=== PATIENT | male | born 1930 | race Caucasian/White ===

== ENCOUNTER 2019-05-22 02:07 | Inpatient (IN) | payer MEDICARE ==
[2019-05-22 02:42] LABS: #Basophils 0.1 thou/uL (0.0-0.2); #Eosinphils 0.5 thou/uL (0.0-0.7); #Lymphocytes 1.4 thou/uL (1.20-3.40); #Neutrophils 12.1 thou/uL (1.40-6.50); %Basophils 0.6 % (0.0-1.0); %Eosinophils 3.6 % (0.0-10.0); %Lymphocytes 9.4 % (21.0-51.0); %Monocytes 6.7 % (0.0-10.0); %Neutrophils 79.7 % (42.0-75.0); Hemoglobin 13.7 g/dL (14.0-18.0); Mean Corpuscular HGB CONC 31.9 g/dL (32.0-36.0); Mean Corpuscular Volume 97.4 fL (78.0-98.0); Mean Platelet Volume 8.5 fL (7.4-10.4); Platelet Count 316 thou/uL (130-400); RBC Distribution Width 12.3 % (11.5-14.5); Red Blood Cell (RBC) Count 4.43 mill/uL (4.70-6.10); White Blood Cell (WBC) Count 15.1 thou/uL (4.8-10.8)
[2019-05-22 03:06] LABS: ALT (SGPT) 20 U/L (8-55); AST (SGOT) 26 U/L (5-34); Albumin 2.6 g/dL (3.4-4.8); Alkaline Phosphatase 61 U/L (40-110); Anion Gap 10 mmol/L (10-20); BUN (Urea Nitrogen) 23 mg/dL (8.4-25.7); Bilirubin, Total 0.6 mg/dL (0.2-1.2); Calc. Creatinine Clearance 0 mL/min (70-130); Calcium 7.8 mg/dL (7.8-10.44); Carbon Dioxide 28 mmol/L (23-31); Chloride 103 mmol/L (98-107); Estimated GFR-MDRD 67; Globulin 2.3 g/dL (2.4-3.5); Glucose 103 mg/dL (83-110); Lipase 171 U/L (8-78); Magnesium 2.1 mg/dL (1.6-2.6); Protein, Total 4.9 g/dL (5.8-8.1); Sodium 137 mmol/L (136-145)
[2019-05-22 03:20] LABS: Bacteria/HPF None Seen HPF (None Seen); Bilirubin Negative (Negative); Blood, Urine 1+ (Negative); Clarity Clear (Clear); Glucose, Urine (Dipstick) Normal (Negative); Leukocyte 250 Leu/uL (Negative); Nitrite Negative (Negative); Protein, Urine (Dipstick) 20 mg/dL (Neg-Trace); Squamous Epithelial 0-3 HPF (0-3); Urobilinogen Normal mg/dL (Less than 2); WBC/HPF Greater than 50 HPF (0-3); Yeast-Budding 1+ HPF (None Seen)
[2019-05-22 03:27] LABS: CKMB 1.5 ng/mL (0-6.6)
[2019-05-22] MEDS ORDERED: cefTRIAXone\\ROCEPHIN 1 GM VIAL ONE (03:46)
--- NOTE | 2019-05-22 03:54 | PDOC.FPRHP ---
- History of Present Illness Chief Complaint: Chest Pain History of Present Illness: 88yo CM with h/o CAD s/p CABG in 2009, HLD, HTN, Anxiety, PTSD, and chronic back pain presents from rehab with chest pain. Pt was recently admitted to the [facility] for Pancreatitis, developed acute delirium and fluid overload and placed on BiPAP for small time. Was improved and discharged to inpatient rehab yesterday. Earlier in the night pt began to experience a substernal chest pressure, rated 5 /10, no radiation, n/v, diaphoresis, or SOB. States he was experiencing associated anxiety and states he has history of anxiety attacks. He has never had pain like this before. Tolerating PO but needs a root canal so some discomfort. and daughter at beside who provide additional history. State he is at his baseline mentation. CP as since resolved completely. Denies any SOB , n/v, fever/chills, Abd pain, LE edema. Endorse UE edema for past 24 hours. Does endorse wounds to BL ankles from being bedridden and generalized deconditioning. PCP: Dr. Dubon - СЕРГЕЙ Cardiology: Dr. Karimi ED Course: Given Rocephin and ASA - Allergies/Adverse Reactions Allergies Allergy/AdvReac Type Severity Reaction Status Date / Time codeine Allergy Verified 05/22/19 06:11 - Home Medications Medication Instructions Recorded Confirmed Type Atorvastatin Calcium [Lipitor] 40 mg PO HS 06/01/14 05/22/19 History Multivit-Min/FA/Lycopene/Lut 1 tablet PO DAILY 06/01/14 05/22/19 History [Centrum Silver] Potassium Chloride [Klor-Con M20] 2 tab PO BID 06/01/14 05/22/19 History Tamsulosin HCl [Flomax] 0.4 mg PO DAILY 06/01/14 05/22/19 History Acetaminophen [Tylenol] 1 - 2 tab PO Q4H PRN 05/22/19 05/22/19 History Aspirin [Ecotrin] 325 mg PO BID 05/22/19 05/22/19 History Benzocaine/Menthol [Cepacol Sore 1 each PO Q2H PRN 05/22/19 05/22/19 History Throat Lozenge] Bisacodyl [Dulcolax] 10 mg TN DAILY PRN 05/22/19 05/22/19 History Calcium Carbonate [Tums] 1 - 2 tab PO Q6H PRN 05/22/19 05/22/19 History Carvedilol [Coreg] 12.5 mg PO BID 05/22/19 05/22/19 History Dextromethorphan/Benzocaine 1 each PO BID PRN 05/22/19 05/22/19 History [Cepacol Sorethroat-Cough Alena] Dextrose 50 % In Water [Dextrose 50 ml IV PRN PRN 05/22/19 05/22/19 History 50%-Water Abboject] Doxycycline [Vibramycin] 100 mg PO BID 05/22/19 05/22/19 History Famotidine [Pepcid] 20 mg PO BID 05/22/19 05/22/19 History Furosemide [Lasix] 20 mg PO BID 05/22/19 05/22/19 History Glucagon [Gvoke Syringe] 1 mg IM PRN PRN 05/22/19 05/22/19 History Ipratropium/Albuterol Sulfate 3 ml NEB Q4HR PRN 05/22/19 05/22/19 History [Duoneb] Lactulose 10 GM/15ML Oral Radha 20 gm PO TID PRN 05/22/19 05/22/19 History [Lactulose] Levofloxacin [Levaquin] 500 mg PO DAILY 05/22/19 05/22/19 History Loperamide HCl [Loperamide] 2 mg PO PRN PRN 05/22/19 05/22/19 History Magnesium Hydroxide [Milk of 30 ml PO DAILY PRN 05/22/19 05/22/19 History Magnesia] Magnesium Oxide 2 tab PO DAILY 05/22/19 05/22/19 History Polyethylene Glycol 3350 [Miralax] 17 gm PO DAILY 05/22/19 05/22/19 History Sacubitril/Valsartan [Entresto 24 1 each PO BID 05/22/19 05/22/19 History mg-26 mg Tablet] cloNIDine [Catapres] 0.1 mg PO Q6H PRN 05/22/19 05/22/19 History diphenhydrAMINE [Benadryl] 25 mg PO Q6HR PRN 05/22/19 05/22/19 History fentaNYL [Duragesic] 75 mcg TD Q3D 05/22/19 05/22/19 History guaiFENesin [Guaifenesin] 200 mg PO Q4H PRN 05/22/19 05/22/19 History - History PMHx: CAD s/p CABG 2008, HLD, HTN, anxiety with panic attacks, PTSD, chronic pain PSHx: Left lobectomy in 1949s 2/2 fungal infection, [place], CABG 2008, H/o PE in 2008, multiple neck and spinal surgeries FHx: [place] Social: Presents from inpatient rehab. Prior was able to ambulate at home and perform ADLS per family report. Prior alcoholic but sober for 18 years. No tob or illicits. - Review of Systems General: reports: fatigue. denies: fever/chills, weight/appetite/sleep changes Eyes: denies: vision changes ENT: denies: nasal congestion, rhinorrhea Respiratory: denies: cough, congestion, shortness of breath, exercise intolerance Cardiovascular: reports: chest pain (resolved), edema (of hands and arms). denies: palpitation, paroxysmal nocturnal dyspnea, orthopnea Gastrointestinal: denies: nausea, vomiting, diarrhea, constipation, abdominal pain Genitourinary: reports: dysuria. denies: incontinence Skin: denies: rashes Musculoskeletal: reports: pain (chronic back pain) Psychological: reports: anxiety - Vital signs BP: 102/45 HR: 61 RR: 18 Tmax: 97.9 Pox: 93% on RA Wt: 95kg - Physical Exam Constitutional: NAD, awake, alert and oriented, other (decondited and chronically ill-appearing) HEENT: grossly normal vision, grossly normal hearing, MMM, oropharynx clear Neck: supple, trachea midline, no LAD Chest: other (well-healed sternotomy scar) Heart: RRR, normal S1/S2, pulses present, other (Significant UE edema of hands and arms. No LE edema noted. 2/6 KVNG.) Lungs: CTAB, no respiratory distress, good air movement, no rales/rhonchi, no wheezing Abdomen: soft, non-tender Musculoskeletal: normal structure Neurological: no focal deficit Skin: no rash/lesions Heme/Lymphatic: no unusual bruising or bleeding, no purpura Psychiatric: normal mood and affect (a/o x3), good judgment and insight, intact recent and remote memory, other FMR H&P: Results - Labs Result Diagrams: 05/22/19 02:34 05/22/19 02:34 Lab results: WBC 15.1 thou/uL (4.8-10.8) H 05/22/19 02:34 Hgb 13.7 g/dL (14.0-18.0) L 05/22/19 02:34 Hct 43.1 % (42.0-52.0) 05/22/19 02:34 MCV 97.4 fL (78.0-98.0) 05/22/19 02:34 Plt Count 316 thou/uL (130-400) 05/22/19 02:34 Neutrophils % 79.7 % (42.0-75.0) H 05/22/19 02:34 Sodium 137 mmol/L (136-145) 05/22/19 02:34 Potassium 4.0 mmol/L (3.5-5.1) 05/22/19 02:34 Chloride 103 mmol/L (98-107) 05/22/19 02:34 Carbon Dioxide 28 mmol/L (23-31) 05/22/19 02:34 BUN 23 mg/dL (8.4-25.7) 05/22/19 02:34 Creatinine 1.05 mg/dL (0.7-1.3) 05/22/19 02:34 Glucose 103 mg/dL (83-110) 05/22/19 02:34 Calcium 7.8 mg/dL (7.8-10.44) 05/22/19 02:34 Total Bilirubin 0.6 mg/dL (0.2-1.2) 05/22/19 02:34 AST 26 U/L (5-34) 05/22/19 02:34 ALT 20 U/L (8-55) 05/22/19 02:34 Alkaline Phosphatase 61 U/L (40-110) 05/22/19 02:34 CK-MB (CK-2) 1.5 ng/mL (0-6.6) 05/22/19 02:34 B-Natriuretic Peptide 295.8 pg/mL (0-100) H 05/22/19 02:34 Serum Total Protein 4.9 g/dL (5.8-8.1) L 05/22/19 02:34 Albumin 2.6 g/dL (3.4-4.8) L 05/22/19 02:34 Lipase 171 U/L (8-78) H 05/22/19 02:34 Urine Ketones Negative mg/dL (Negative) 05/22/19 03:02 Urine Blood 1+ (Negative) A 05/22/19 03:02 Urine Nitrite Negative (Negative) 05/22/19 03:02 Ur Leukocyte Esterase 250 Dwain/uL (Negative) A 05/22/19 03:02 Urine RBC 11-20 HPF (0-3) A 05/22/19 03:02 Urine WBC Greater than 50 HPF (0-3) A 05/22/19 03:02 Ur Squamous Epith Cells 0-3 HPF (0-3) 05/22/19 03:02 Urine Bacteria None Seen HPF (None Seen) 05/22/19 03:02 - Radiology Interpretation Chest x-ray Status: image reviewed by me (no acute CPP, no focal consolidation) CT scan - abdomen Status: report reviewed by me (negative for PE. Emphysematous changes with nonspecfici bronchiolitis in the RUL and RML. Fluid overload with BL Pleural effusions and sub q edema. Subcentimeter pulm nodules) FMR H&P: A/P - Problem List (1) Acute exacerbation of CHF (congestive heart failure) Current Visit: Yes Status: Acute Code(s): I50.9 - HEART FAILURE, UNSPECIFIED (2) Chronic low back pain Current Visit: Yes Status: Chronic Code(s): M54.5 - LOW BACK PAIN; G89.29 - OTHER CHRONIC PAIN (3) CAD (coronary artery disease) Current Visit: Yes Status: Chronic Code(s): I25.10 - ATHSCL HEART DISEASE OF [place] CORONARY ARTERY W/O ANG PCTRS Qualifiers: Coronary Disease-Associated Artery/Lesion type: bypass graft, autologous vein (4) Anxiety Current Visit: Yes Status: Chronic Code(s): F41.9 - ANXIETY DISORDER, UNSPECIFIED (5) Hypertension Current Visit: Yes Status: Chronic Code(s): I10 - ESSENTIAL (PRIMARY) HYPERTENSION - Plan 88yo CM with h/o CAD s/p CABG in 2008, HLD, HTN, Anxiety, PTSD, and chronic back pain presents from rehab with chest pain found to have mild CHF exacerbation and fungal UTI. #Mild CHF exacerbation - H/o CAD s/p CABG in 2008 - Dr. Karimi is [employer], recently seen at last hospitalization for Pancreatitis - Lungs clear on exam and CXR but CT with BL pleural effusions and sub q edema. Has UE edema - Will give Lasix 40mg IV x1 now and cont to monitor and restart home dose - No echo at this time as recently seen by cardiology - Strict I/Os and daily weights, monitoring clinical status #Atypical Chest pain - likely 2/2 CHF exercation and acute anxiety - Trop 0.1, lower than previous visits, will trend - admit to tele for monitoring - has since resolved #Fungal UTI - UTI with 1+ fungus and LE and WBC. Sxs of dysuria - Given Rocephin x1 in ED, will d/c - Diflucan 200mg BID x14d - WBC 15.1, will trend #Deconditioning - came from inpatient rehab, goal of returning when medically cleared - PT/OT/Case Management consulted #Elevated D-Dimer - D-dimer 2.37, CTA negative for PE #Anxiety/PTSD - Home elavil and klonipin - Will hold home meds as pt as some complaints of confusion and could be causing some decreased breathing leading to increased fluid overload - Will reeval and restart when appropriate #Chronic back pain - On fentyl patch at home, will cont #HLD - cont home lipitor #HTN - cont home meds and monitor Code: Full - discussed with pt and at beside VTE: Lovenox Diet: HH - mechanical soft IVF: SL PCP: Pope Lauren RUSHING Disposition/LOS: Admit to tele for atypical chest pain and acute CHF exacerbation and fungal UTI. Diuresis with IV lasix. Cont Diflucan for yeast UTI. Trop trops. FMR H&P: Upper Level - Pertinent history I went and talked with patient. Pt reports having chest pain at rest. Hadn't felt anything like this before. Talked with family about past hospitilization. Their story in in congruence with above HPI. I made edits above as needed. - Pertinent findings Pt is slumped over in bed. Pt had reproducible pain to palpation along chest wall. Pt has sky in place. Cardio: RRR, no murmurs or gallops. Resp: Pt has some decreased breath sounds. No crackles or rales noted. Ext: No edema note in LE. Pt has swelling in hands bilaterally. Abdomen mildly distended. - Plan Date/Time: 05/22/19 5913 I, Ilia Frost, PGY-3, have evaluated this patient and agree with findings/ plan as outlined by actuarial intern resident. Pertinent changes/additions are listed here. See above for detailed plan. I made edits as needed. Pt was initially admitted for concern for Chest Pain R/O. At this time we believe pt has mild chf exacerbation. Pt recently tx for pancreatitis and discharged yesterday. He was even seen by his transliterator at the other hospital and tx for fluid overload after fluid rescusitation for pancreatitis. At this time will give IV lasix. He is also noted to have yeast UTI. Could be contributing to weakness and possibly some of his pain. Will tx with diflucan. Addendum - Attending - Attending Attestation Date/Time: 05/22/19 2179 I personally evaluated the patient and discussed the management with Dr. Wahl. I agree with the History, Examination, Assessment and Plan documented above with any addition or exceptions noted below. The patient presented from Inpt rehab for chest pain. He does note pain in the center of his chest and it is reproducible. CT shows evidence of volume overload. Will give IV lasix. UA shows yeast, will treat with fluconazole for uti 2/2 yeast.
[2019-05-22] MEDS ORDERED: Aspirin 325 MG TAB PO SCH (05:30)
[2019-05-22] MEDS ORDERED: Ondansetron ODT 4 MG TAB PO PRN (05:38)
[2019-05-22] MEDS ORDERED: Calcium Carbonate 500 MG ChewTAB PO PRN (05:38)
[2019-05-22] MEDS ORDERED: Ondansetron PF 4 MG/2 ML Vial IVP PRN (05:38)
[2019-05-22] MEDS ORDERED: Furosemide 40 MG/4 ML VIAL SLOW IVP SCH (05:45)
[2019-05-22 06:19] LABS: Troponin I 0.077 ng/mL (< 0.028)
--- NOTE | 2019-05-22 07:30 | RAD ---
EXAM: XR Chest 1 View Portable PROVIDED CLINICAL HISTORY: Hypotension and chest pain COMPARISON: 06/05/2014 FINDINGS: Cardiac and mediastinal silhouette is unchanged in appearance. Left subclavian cardiac pacing device and median sternotomy changes are again seen. The left lung apex is obscured. Elevation left hemidiaphragm with adjacent pleural and/or parenchymal opacity appears similar to the prior study. No evidence for pneumothorax. IMPRESSION: Elevation of the left hemidiaphragm with adjacent pleural and/or parenchymal opacity. This appears si milar to prior and may reflect chronic or recurrent process.
--- NOTE | 2019-05-22 08:05 | CT ---
PRELIMINARY REPORT/[facility]/EMERGENCY AFTER HOURS PROCEDURE PROCEDURE INFORMATION: Exam: CT Angiography Chest With Contrast Exam date and time: 05/22/2019 3:19 AM Clinical history: 88 years old, male; Patient HX: Er8; M86, patient complains of midsternal chest pain and hypotension. PT has history of chf and pacer placement. TECHNIQUE: Imaging protocol: Computed tomographic angiography of the chest with intravenous contrast. 3D rendering: MIP reconstructed images were created and reviewed. COMPARISON: No relevant prior studies available. FINDINGS: Pulmonary arteries: No pulmonary emboli. Aorta: Atherosclerosis of the aorta without aneurysm. Other veins: Linear density in the left inferior pulmonary vein is probably related to mixing artifac t. Thyroid: Subcentimeter left thyroid lobe nodule. Lungs: Emphysematous changes with mild septal thickening and mild scattered groundglass opacities. Focal areas of tiny centrilobular nodules consistent with bronchiolitis, for example poste rior aspect of the right upper lung (series 3, image 59). There are a few subcentimeter pulmonary nodules, for example right middle lobe measuring 4 mm (series 3, image 75). Bibasilar atelectasis. Pleural space: Small bilateral pleural effusions, right greater than left. Heart: The heart is within normal size limits. No abnormal pericardial effusion. Coronary artery calcifications. Surgical changes of coronary artery bypass. Left approach dual lead pacemaker. Diaphragm: Elevation of the left hemidiaphragm. Intraperitoneal space: Small volume ascites in the upper abdomen. Lymph nodes: No lymphadenopathy. Bones/joints: Anterior cervical spine fusion C5-C6. Chronic appearing deformities of left lateral fourth and fifth ribs. Soft tissues: Subcutaneous edema. IMPRESSION: 1. No evidence of a pulmonary embolism. 2. Emphysematous changes with nonspecific bronchiolitis predominantly in the right upper lung and right middle lobe. 3. Findings consistent with fluid overload including bilateral pleural effusions, subcutaneous edema and likely early edema. 4. Defer to the on-site radiologist for followup of subcentimeter pulmonary nodules. Thank you for allowing us to participate in the care of your patient. Dictated and Authenticated by: Tosin Cardoso MD 05/22/2019 4:35 AM Central Time ([place] & [place]) FINAL REPORT: CT PULMONARY ANGIOGRAM WITH IV CONTRAST AND 3D MIP RECONSTRUCTIONS: PROVIDED CLINICAL HISTORY: Chest pain COMPARISON: None FINDINGS/IMPRESSION: Agree with the preliminary interpretation given by [facility]. Described pulmonary nodules do not need foll ow-up per Fleischner criteria. Transcribed Date/Time: 05/22/2019 8:29 AM
[2019-05-22] MEDS: Fluconazole 100 MG TAB PO SCH (09:02)
[2019-05-22] MEDS: Aspirin 81 mg Enteric Coated Tablet PO SCH (09:02)
[2019-05-22] MEDS: Potassium Chloride 20 MEQ TAB PO SCH ×2 (09:03→09:13)
[2019-05-22] MEDS: Famotidine 20 MG TAB PO SCH ×2 (09:03→20:16)
[2019-05-22] MEDS: Atorvastatin Calcium 40 MG TAB PO SCH (09:03)
[2019-05-22] MEDS: Enoxaparin Sodium 40 MG/0.4 ML SYRINGE SC SCH (09:03)
[2019-05-22 09:24] LABS: Troponin I 0.058 ng/mL (< 0.028)
[2019-05-22] MEDS: Furosemide 20 MG/2 ML VIAL SLOW IVP SCH (14:54)
[2019-05-22] MEDS: diphenhydrAMINE 50 MG CAP PO PRN (20:16)
[2019-05-23] MEDS: Furosemide 20 MG/2 ML VIAL SLOW IVP SCH (05:20)
--- NOTE | 2019-05-23 06:57 | PDOC.FM ---
Addendum entered and electronically signed by Sami Salguero DO 05/23/19 09: 41: Addendum to prior: For leukocytosis will rx broad spectrum abx and check procalcitonin. Original Note: - Subjective Subjective: Pt had code marcus called @ approx 0839 for CP and sob. Pts bp noted to be 70s/ 40s prior. He was given bolus of IVF and stat ekg and chest xr were performed which showed paced rhythm and normal XR. Troponins were drawn. BP trended up with IVF and pt was trasnferred to ICU for continued care. Pt does have wide pulse pressure last BP 120s/30s. - Objective Vital Signs & Weight: Vital Signs (12 hours) Temp Pulse Resp BP Pulse Ox 05/23/19 03:35 97.8 F 77 14 104/63 96 05/22/19 20:00 97.7 F 61 18 113/42 L 96 Weight Admit Weight 78.471 kg Weight 77.111 kg I&O: 05/21/19 05/22/19 05/23/19 06:59 06:59 06:59 Intake Total 240 Output Total 450 Balance -210 Result Diagrams: 05/23/19 08:34 05/23/19 07:02 Phys Exam - Physical Examination ill appearing HEENT: PERRLA, sclera anicteric Neck: no JVD Respiratory: no wheezing, no rales, no rhonchi, clear to auscultation bilateral Cardiovascular: RRR, no rub SEM3/6 Gastrointestinal: soft, non-tender, no distention, positive bowel sounds Musculoskeletal: no edema, pulses present Neurological: non-focal, moves all 4 limbs Psychiatric: normal affect Deviation from normal: a&oX2, slow to repond, confused Skin: no rash, cap refill <2 seconds Dx/Plan (1) NSTEMI (non-ST elevated myocardial infarction) Code(s): I21.4 - NON-ST ELEVATION (NSTEMI) MYOCARDIAL INFARCTION Status: Acute (2) Acute exacerbation of CHF (congestive heart failure) Code(s): I50.9 - HEART FAILURE, UNSPECIFIED Status: Acute (3) Anxiety Code(s): F41.9 - ANXIETY DISORDER, UNSPECIFIED Status: Chronic (4) Chronic low back pain Code(s): M54.5 - LOW BACK PAIN; G89.29 - OTHER CHRONIC PAIN Status: Chronic (5) Hypertension Code(s): I10 - ESSENTIAL (PRIMARY) HYPERTENSION Status: Chronic (6) Constipation Code(s): K59.00 - CONSTIPATION, UNSPECIFIED Status: Acute (7) Leukocytosis Code(s): D72.829 - ELEVATED WHITE BLOOD CELL COUNT, UNSPECIFIED Status: Acute - Plan Plan: #NSTEMI -renally dosed ther lovenox - cardiology consulted ands stat echo placed - appreacite recs - pt transferred to ICU for continued care #Mild CHF exacerbation - pt has diuresed; however, had episode of cp this am and repeat trops in NSTEMI range - will cosnult cardiology, apprecaite recs - repeat CXR does no suggest evidence of cont pleural effusions #Fungal UTI - UTI with 1+ fungus and LE and WBC. Sxs of dysuria - Diflucan 200mg BID x14d - WBC 15.1, will trend #Deconditioning - will need rehab IP - pending clinical course #Elevated D-Dimer - D-dimer 2.37, CTA negative for PE - check venous doppler #Anxiety/PTSD - Home elavil and klonipin - resume home meds #Chronic back pain - fentanyl patch removed for LOW BP Dispo: Pt prognosis huarde. Low BP and now NSTEMI. Cardiology has been consulted and pt transferred to ICU for continued care. Addendum - Attending - Attending Attestation Date/Time: 05/23/19 0855 I personally evaluated the patient and discussed the management with Dr. Salguero. I agree with the History, Examination, Assessment and Plan documented above with any addition or exceptions noted below. The patient was initially seen at 0645 and stated he was tired but had no complaints of chest pain. Code marcus called shortly after 0830 for chest pain, shortness of breath and hypotension. Pt was bolused fluids. Systolic improved to 110's and he continued to complain of chest pain. Pt was given nitroglycerin and bp decreased to 60's/30's. Pt was transferred to ICU. Additional fluid boluses given. Trending enzymes. Initially CXR looked to have an infiltrate but this was thought to be scar or shaddow and was consistent on previous x-rays. Antibiotics were started and subsequently d/c' s. Cardiology is consulted. Pulm will be consulted as well. Pt's blood pressure improved after bolus. Will monitor. Chest pain resolved after the dose of nitro. Fentanyl patch was also discontinued during the hypotensive episode.
[2019-05-23] MEDS ORDERED: Furosemide 20 MG/2 ML VIAL SLOW IVP SCH (07:00)
[2019-05-23 07:50] LABS: ALT (SGPT) 18 U/L (8-55); AST (SGOT) 28 U/L (5-34); Albumin 2.7 g/dL (3.4-4.8); Alkaline Phosphatase 61 U/L (40-110); Anion Gap 11 mmol/L (10-20); BUN (Urea Nitrogen) 18 mg/dL (8.4-25.7); Bilirubin, Total 0.5 mg/dL (0.2-1.2); Calc. Creatinine Clearance 53 mL/min (70-130); Calcium 8.1 mg/dL (7.8-10.44); Carbon Dioxide 30 mmol/L (23-31); Chloride 99 mmol/L (98-107); Estimated GFR-MDRD 63; Globulin 2.3 g/dL (2.4-3.5); Glucose 101 mg/dL (83-110); Potassium 3.4 mmol/L (3.5-5.1); Sodium 137 mmol/L (136-145)
[2019-05-23] MEDS ORDERED: Nitroglycerin 0.4 MG TAB (25 Tab Bottle) ONE (08:30)
[2019-05-23] MEDS ORDERED: Sodium Chloride 0.9% 500 ML IVPB SCH (08:30)
--- NOTE | 2019-05-23 08:46 | RAD ---
RADIOGRAPH CHEST 1 VIEW: DATE: 05/23/2019 8:12 AM HISTORY: 88-year-old male with chest pain COMPARISON: 05/22/2019 FINDINGS: There are no airspace densities, pulmonary edema, pneumothorax, or cardiomegaly. The lateral costophr enic angles are sharp. Left subclavian pacemaker. Sternotomy wires. Mandible overlaps left lung apex. Hyperdense object overlying left apex probably represents bony hypertrophy of left first rib. N o interval change overall compared to yesterday. IMPRESSION: 1. The known bilateral small pleural effusions demonstrated on recent CT, are not visible on this sin gle view chest radiograph. 2. No acute cardiopulmonary findings on the single view chest radiograph.
[2019-05-23] MEDS ORDERED: Vancomycin HCl 1 GM in Premix Bag 1 BAG IVPB SCH ×2 (09:30→21:00)
[2019-05-23] MEDS: Enoxaparin Sodium 40 MG/0.4 ML SYRINGE SC SCH (09:32)
[2019-05-23] MEDS: Polyethylene Glycol 3350 17 GM Packet PO SCH (09:32)
[2019-05-23] MEDS: Aspirin 81 mg Enteric Coated Tablet PO SCH (09:32)
[2019-05-23] MEDS: Atorvastatin Calcium 40 MG TAB PO SCH (09:32)
[2019-05-23] MEDS: Famotidine 20 MG TAB PO SCH ×2 (09:33→21:34)
[2019-05-23 09:35] LABS: Band 8 % (5-11); Eosinophils 3 % (0-10); Hemoglobin 11.5 g/dL (14.0-18.0); Lymphocytes 11 % (21-51); MDiff Complete? YES; Mean Corpuscular HGB CONC 32.3 g/dL (32.0-36.0); Mean Corpuscular Hemoglobin 31.2 pg (27.0-31.0); Mean Corpuscular Volume 96.5 fL (78.0-98.0); Mean Platelet Volume 8.5 fL (7.4-10.4); Monocytes 6 % (0-10); Neutrophil 72 % (42-75); Platelet Count 256 thou/uL (130-400); RBC Distribution Width 12.2 % (11.5-14.5); White Blood Cell (WBC) Count 12.6 thou/uL (4.8-10.8)
[2019-05-23] MEDS: Fluconazole 100 MG TAB PO SCH (09:44)
[2019-05-23] MEDS ORDERED: Enoxaparin Sodium 80 MG/0.8 ML SYRINGE SC SCH ×2 (10:00→21:00)
[2019-05-23] MEDS ORDERED: Piperacillin/Tazobactam 2.25 GM in Sodium Chloride 0.9% 100 ML IVPB SCH (10:00)
[2019-05-23 10:03] VITALS: BMI 22.6
[2019-05-23] MEDS ORDERED: Lactated Ringer's 1,000 ML IV SCH (10:15)
[2019-05-23] MEDS ORDERED: Enoxaparin Sodium 40 MG/0.4 ML SYRINGE SC SCH (10:15)
[2019-05-23] MEDS ORDERED: Potassium Chloride 40 MEQ in Sodium Chloride 0.9% 250 ML 250 ML IVPB SCH (10:30)
[2019-05-23] MEDS ORDERED: Vancomycin 1.5 GRAM/300 ML BAG 1.5 GM in Premix Bag 1 BAG IVPB SCH (11:00)
[2019-05-23] MEDS ORDERED: Vancomycin HCl 1.5 GM in Sodium Chloride 0.9% 250 ML 300 ML IVPB SCH (11:00)
--- NOTE | 2019-05-23 11:40 | CON ---
DATE OF CONSULTATION: 05/23/2019 REASON FOR CONSULTATION: Indeterminate troponins. HISTORY OF PRESENT ILLNESS: Mr. Heredia is a pleasant 88-year-old black gentleman, who comes to the hospital for abdominal pain. He was admitted at [facility] just a week or 2 ago for pancreatitis. He was discharged to the snf. He comes back for what was said to be chest pain; however, when we asked him where he was hurting, he points more to the upper abdomen. He received a large amount of fluid resuscitation when he was down at [facility] and had to be placed on a BiPAP and was discharged to inpatient rehab yesterday after diuresis. He was brought in, given some fluids. He became fluid overloaded again and had to be given Lasix and admitted for further evaluation. On my evaluation, Mr. Heredia denies any chest pain, tightness, or pressure. Denies any further shortness of breath. He is resting comfortably in the bed. PAST MEDICAL HISTORY: 1. CAD status post CABG in 2008. 2. Hyperlipidemia. 3. Hypertension. 4. Anxiety and depression. 5. Panic attacks. 6. PTSD. 7. Chronic pain. SURGICAL HISTORY: 1. Left lobectomy in 1949 secondary to fungal infection. 2. Appendectomy. 3. Coronary artery bypass grafting in 2008. 4. History of pulmonary embolism in 2008. 5. Multiple neck and spinal surgeries. FAMILY HISTORY: Noncontributory. SOCIAL HISTORY: No alcohol for the last 18 years. No tobacco or drug use. REVIEW OF SYSTEMS: A 12-point review of systems was done and was all negative unless stated in history of present illness. PHYSICAL EXAMINATION: VITAL SIGNS: Temperature 97.7, pulse 73, respiratory rate 20, saturating 100% on 2L nasal cannula, and blood pressure 105/54. GENERAL: Awake, alert, and oriented x3, in no distress. HEENT: Normocephalic and atraumatic. NECK: Supple. LUNGS: Clear. CARDIOVASCULAR: S1 and S2. No S3 or S4. No murmurs. ABDOMEN: Soft. Positive bowel sounds. EXTREMITIES: No edema. SKIN: Warm and dry. LABORATORY DATA: Laboratory work was reviewed. CBC with a white count of 15 on admission and down to 12, hemoglobin of 11, hematocrit 35, and platelet count of 256. Coags, D-dimer was high. Chemistries were unremarkable except for potassium of 3.4. Troponin was 0.10, 0.07, and 0.05. BNP was 295. Albumin of 2.7. UA with 1+ blood, 250 leukocyte esterase, 11-20 red cells, more than 50 white cells, and 1+ yeast. IMAGING STUDIES: CT angio of the chest, no evidence of pulmonary embolism. Emphysematous changes and bronchiolitis in the right upper lung and right middle lobe. Fluid overload with bilateral effusions and subcu edema. ASSESSMENT AND PLAN: 1. [id number] systolic versus diastolic heart failure. 2. Acute pancreatitis, resolving. 3. Indeterminate troponins, likely type 2 demand type of infarct. 4. Possible urinary tract infection with fungal organism. PLAN: 1. We will plan on doing an echocardiogram to assess LV function and valvular structures. Last LV function he was with a transesophageal echo with Dr. Kapoor in 05/2014, and his EF was normal. 2. Troponins are not at a level that require full anticoagulation. This is most likely a type of AR demand ischemia. 3. If full anticoagulation is not warranted for other reasons, then we would consider switching his DVT prophylaxis to Xarelto 2.5 mg twice a day. Thank you for letting us to participate in the care of the patient. Dr. Kapoor, his right of way manager here in [place], will follow up in the morning. Job ID: [id number]
[2019-05-23] MEDS ORDERED: Piperacillin/Tazobactam 3.375 GM in Sodium Chloride 0.9% 100 ML IVPB SCH (12:00)
[2019-05-23 12:39] LABS: Troponin I 0.137 ng/mL (< 0.028)
[2019-05-23] MEDS ORDERED: Tamsulosin HCl 0.4 MG CAP PO SCH (12:45)
[2019-05-23] MEDS ORDERED: Potassium Chloride 20 MEQ TAB PO SCH (13:00)
--- NOTE | 2019-05-23 13:21 | CON ---
DATE OF CONSULTATION: 05/23/2019 SERVICE: Pulmonary Medicine. REASON FOR CONSULTATION: ICU patient. HISTORY OF PRESENT ILLNESS: The patient is an 88-year-old white male with past medical history significant for heart failure. He presented to the hospital on May 22, 2019, with complaints of chest discomfort. Ultimately, he was placed on the floor, but became increasingly short of breath, had some diaphoresis and some chest discomfort. As such, he was moved to the ICU. He was given some Lasix as well as IV fluids. This morning, he appears to be chest pain-free, denies having any shortness of breath or dyspnea that limits activity. Otherwise, he is stable hemodynamically. He is currently on 2 L nasal cannula and denies having any significant cough or sputum production. Presenting to the Emergency Department , he did not have any complaints of fevers, chills, sputum production, nausea, vomiting, or diarrhea. He did not have any hot, red, or swollen joints or rashes present. PAST MEDICAL HISTORY: 1. Coronary artery disease. 2. Hypertension. 3. Dyslipidemia. 4. Chronic pain. 5. PTSD. 6. Anxiety disorder with history of panic attacks. 7. History of pulmonary embolism. PAST SURGICAL HISTORY: 1. Lobectomy in the 1950s secondary to fungal infection. 2. Appendectomy. 3. Coronary artery bypass graft. 4. Neck and spine surgery, multiple. FAMILY HISTORY: Noncontributory. SOCIAL HISTORY: The patient denies any current alcohol, tobacco, or illicit drug use. He has a remote history of heavy alcohol abuse. He has no exposure to chemicals, dust, asbestos, or tuberculosis. ALLERGIES: CODEINE. MEDICATIONS: List of his inpatient medications was reviewed. I have added Flomax back to his routine. REVIEW OF SYSTEMS: General, head, ears, eyes, nose, throat, cardiovascular, respiratory, GI, , musculoskeletal, neurologic, and skin is negative except as mentioned in the HPI. PHYSICAL EXAMINATION: VITAL SIGNS: Afebrile, pulse 87, blood pressure 110/39, respirations 20, and O2 saturation 93%, currently on 2 L nasal cannula. GENERAL: The patient is awake and alert, in no apparent distress. LUNGS: There is a decreased air entry. There is prolonged expiratory phase, but I do not appreciate any wheezing. Crackles are present. No rhonchi. HEART: Normal rate. Regular. ABDOMEN: Soft, nontender, and nondistended. Bowel sounds are positive. MUSCULOSKELETAL: No cyanosis or clubbing. 1+ pitting is present bilateral lower extremities. NEUROLOGIC: Grossly nonfocal. LABORATORY DATA: WBC 12.6 and downtrending, hemoglobin 11.5, and platelets 256, 000. D-dimer 2.37. Basic metabolic profile is essentially unremarkable except for a potassium of 3.4. Liver function studies are essentially unremarkable otherwise. Troponin is uptrending to 0.137. Procalcitonin is unremarkable. Urinalysis is negative except for a little bit of pyuria, though the nitrites are negative. There is yeast present, but no bacteria. Urine culture is actually growing yeast. IMAGIN. Chest x-ray demonstrates no obvious acute cardiopulmonary abnormality. I cannot exclude possible retrocardiac infiltrate. 2. CT of the chest demonstrates scattered ground-glass opacifications that seemed to be layering. There are bilateral pleural effusions present. There is some atelectasis in the left lower lobe. Left atrium is a touch generous. Right atrium and ventricle are decompressed. The left ventricle looks generous. ASSESSMENT: 1. Acute hypoxic respiratory failure. 2. Non-ST elevation myocardial infarction, secondary to demand. 3. Acute heart failure, underlying type not known. 4. Acute pancreatitis, resolved. 5. Urinary tract infection ? DISCUSSION AND PLAN: Vancomycin will be discontinued. We can rapidly deescalate antibiotics through time unless something comes up positive. We will continue to diurese the patient down to euvolemia as tolerated. Potassium to be replaced today. Pulmonary/Critical Care will continue to follow along in this location, but from my perspective, he is stable for transition out of the ICU to the floor. I do not believe there is a lung infection present. 70 minutes have been devoted to this patient in various activities. I personally reviewed all imaging studies and laboratory data noted within this document. For fifty percent of this time, I was interacting with the patient at the bedside or coordinating care with the care team. For the remainder of the time I was immediately available to the patient in the hospital unit. Job ID: [id number] [facility]
[2019-05-23] MEDS: HYDROcodone/Acetaminophen 10/325 mg Tablet PO PRN (14:55)
--- NOTE | 2019-05-24 06:29 | PDOC.FM ---
- Subjective Subjective: Overnight, patient complaining of difficulty voiding. Flomax was added to patient regimen yesterday but still had difficulty. Patient came from rehab with sky in place. Otherwise, patient did well overnight. This morning he states he is slightly SOB. He denies any chest pain, abdominal pain, NVD. States he has not had a large appetite. He states he feels better than yesterday. - Objective MAR Reviewed: Yes Vital Signs & Weight: Vital Signs (12 hours) Temp Pulse Ox 05/24/19 04:00 98.0 F 05/24/19 00:00 98.0 F 05/23/19 20:00 100 05/23/19 19:00 98.4 F Weight Admit Weight 78.471 kg Weight 80 kg Most Recent Monitor Data Heart Rate from ECG 68 NIBP 135/57 NIBP BP-Mean 83 Respiration from ECG 15 SpO2 98 I&O: 05/22/19 05/23/19 05/24/19 06:59 06:59 06:59 Intake Total 240 3240 Output Total 450 750 Balance -210 2490 Result Diagrams: 05/24/19 05:15 05/24/19 05:15 Phys Exam - Physical Examination Constitutional: NAD HEENT: moist MMs, sclera anicteric Neck: supple, full ROM Respiratory: no wheezing, no rales, no rhonchi, clear to auscultation bilateral Cardiovascular: RRR, no rub 3/6 systolic murmur over the aorta Gastrointestinal: soft, no distention, positive bowel sounds mild TTP in midepigastrium Musculoskeletal: no edema Neurological: non-focal, moves all 4 limbs Psychiatric: normal affect Skin: no rash, normal turgor, cap refill <2 seconds Dx/Plan (1) Acute exacerbation of CHF (congestive heart failure) Code(s): I50.9 - HEART FAILURE, UNSPECIFIED Status: Acute (2) NSTEMI (non-ST elevated myocardial infarction) Code(s): I21.4 - NON-ST ELEVATION (NSTEMI) MYOCARDIAL INFARCTION Status: Acute (3) Anxiety Code(s): F41.9 - ANXIETY DISORDER, UNSPECIFIED Status: Chronic (4) CAD (coronary artery disease) Code(s): I25.10 - ATHSCL HEART DISEASE OF [place] CORONARY ARTERY W/O ANG PCTRS Status: Chronic Qualifiers: Coronary Disease-Associated Artery/Lesion type: bypass graft, autologous vein (5) Chronic low back pain Code(s): M54.5 - LOW BACK PAIN; G89.29 - OTHER CHRONIC PAIN Status: Chronic (6) Hypertension Code(s): I10 - ESSENTIAL (PRIMARY) HYPERTENSION Status: Chronic (7) Constipation Code(s): K59.00 - CONSTIPATION, UNSPECIFIED Status: Acute (8) Depression Code(s): F32.9 - MAJOR DEPRESSIVE DISORDER, SINGLE EPISODE, UNSPECIFIED Status : Acute (9) Osteoarthritis Code(s): M19.90 - UNSPECIFIED OSTEOARTHRITIS, UNSPECIFIED SITE Status: Acute - Plan Plan: This is an 88yo M who was admitted for mild CHF exacerbation. Code marcus called on 05/23 for CP and SOB and patient was moved to the ICU for continued care. Consults: Cardiology, Pulmonology, Palliative Care FLATBED STITCHER: - Patient is AXOX3 Resp: - Satting well on RA and in no distress CV: - No pressors - Cards consulted on 05/23 due to rise in trop to 0.137. Likely due to demand ischemia. Elevated D-dimer. CTA neg for PE. Venous doppler pending. - Will change DVT ppx to xarelto 2.5mg BID per cards recs - Echo showing EF 50-55%, 1/3 diastolic dysfunction - Will transfer to tele - Hx of CHF w/ exacerbation- patient has diuresed some, improved SOB. Continue lasix. GI: - Patient recovering from pancreatitis. Due to PE today, will de-escalate diet to mechanical soft. Will repeat a lipase. Heme: - Chronic anemia. At baseline. Will continue to monitor. /Renal: - I/O: 2490 - Sky to be replaced - UTI being tx with diflucan Infection: - Fungal UTI. U cx showing yeast. Will treat with diflucan 200mg BID x 14days Endo: - Sugars controlled MSK: - Deconditioned. PT/OT in place. Will likely need rehab IP - Hx of chronic back pain- norco PRN for pain. Fentanyl patch removed due to previous low BPs. Psych: - Hx of Anxiety/PTSD: home elavil and klonipin Lines/Tubes: 1 peripheral IV, sky Code: Full PPX: xarelto, pepcid Dispo: Pending clinical course. Cardiology has been consulted and following. Can go to tele today. Rehab consult placed. Case discussed with Dr. Ardon. Addendum - Attending - Attending Attestation Date/Time: 05/24/19 5042 I personally evaluated the patient and discussed the management with Dr. Scanlon. I agree with the History, Examination, Assessment and Plan documented above with any addition or exceptions noted below.
[2019-05-24 06:40] LABS: ALT (SGPT) 20 U/L (8-55); AST (SGOT) 33 U/L (5-34); Albumin 2.7 g/dL (3.4-4.8); Alkaline Phosphatase 61 U/L (40-110); Anion Gap 11 mmol/L (10-20); BUN (Urea Nitrogen) 16 mg/dL (8.4-25.7); Bilirubin, Total 0.6 mg/dL (0.2-1.2); Calc. Creatinine Clearance 66 mL/min (70-130); Calcium 8.2 mg/dL (7.8-10.44); Carbon Dioxide 29 mmol/L (23-31); Chloride 99 mmol/L (98-107); Estimated GFR-MDRD 79; Globulin 2.5 g/dL (2.4-3.5); Glucose 98 mg/dL (83-110); Magnesium 2.1 mg/dL (1.6-2.6); Potassium 3.5 mmol/L (3.5-5.1); Protein, Total 5.2 g/dL (5.8-8.1); Sodium 135 mmol/L (136-145)
[2019-05-24 07:10] LABS: Band 6 % (5-11); Eosinophils 4 % (0-10); Hemoglobin 11.1 g/dL (14.0-18.0); Lymphocytes 11 % (21-51); MDiff Complete? YES; Mean Corpuscular Hemoglobin 31.1 pg (27.0-31.0); Mean Corpuscular Volume 94.1 fL (78.0-98.0); Mean Platelet Volume 8.8 fL (7.4-10.4); Monocytes 8 % (0-10); Neutrophil 71 % (42-75); Platelet Count 235 thou/uL (130-400); RBC Distribution Width 12.2 % (11.5-14.5); Red Blood Cell (RBC) Count 3.58 mill/uL (4.70-6.10); White Blood Cell (WBC) Count 10.2 thou/uL (4.8-10.8)
--- NOTE | 2019-05-24 07:44 | ULT ---
Bilateral lower extremity venous Doppler ultrasound: 05/24/2019 COMPARISON: None HISTORY: Elevated d-dimer, assess for DVT, midsternal chest pain and hypotension TECHNIQUE: Multiplanar grayscale sonographic imaging of the venous structures of bilateral lower extr emities obtained with color flow and spectral analysis FINDINGS: Bilateral common femoral veins, greater saphenous veins, profunda femoral veins, femoral ve ins, popliteal veins, and posterior tibial veins are patent. There is normal blood flow, augmentation, and compression within the deep venous system bilaterally. No evidence for DVT on eithe r side. IMPRESSION: No evidence for deep venous thrombosis of either lower extremity.
[2019-05-24] MEDS: Fluconazole 100 MG TAB PO SCH (08:47)
[2019-05-24] MEDS: Aspirin 81 mg Enteric Coated Tablet PO SCH (08:48)
[2019-05-24] MEDS: Atorvastatin Calcium 40 MG TAB PO SCH (08:49)
[2019-05-24] MEDS: Rivaroxaban 2.5 MG TAB PO SCH ×2 (08:50→21:05)
[2019-05-24] MEDS: Famotidine 20 MG TAB PO SCH ×2 (08:52→21:05)
[2019-05-24] MEDS: Polyethylene Glycol 3350 17 GM Packet PO SCH (08:54)
[2019-05-24] MEDS: Furosemide 40 MG/4 ML VIAL SLOW IVP SCH (08:54)
[2019-05-24] MEDS: Tamsulosin HCl 0.4 MG CAP PO SCH (08:55)
[2019-05-24] MEDS ORDERED: fentaNYL 75 mcg/hour Patch TD SCH (09:00)
[2019-05-24] MEDS ORDERED: Enoxaparin Sodium 30 MG/0.3 ML SYRINGE SC SCH (09:00)
[2019-05-24] MEDS: HYDROcodone/Acetaminophen 10/325 mg Tablet PO PRN (11:50)
--- NOTE | 2019-05-24 13:15 | PQF ---
REENA FRANKLIN CAITLIN MD [id number] CLINICAL DOCUMENTATION IMPROVEMENT CLARIFICATION FORM: ICD-10 Updated PLEASE DO AN ADDENDUM TO THE PROGRESS NOTE WITH ANY DOCUMENTATION UPDATES OR ADDITIONS AND CARRY THROUGH TO DC SUMMARY. THANK YOU. DATE: 05/24/19 ATTN: Dr. Scanlon Please exercise your independent, professional judgment in responding to the clarification form. Clinical indicators are provided on the bottom of this form for your review Please check appropriate box(s): HEART FAILURE: A. ACUITY [ x] Acute on Chronic [ ] Chronic B. TYPE [ x] Diastolic / HFpEF [ ]Systolic /HFrEF [ ] Hypertensive Heart and Kidney disease [ ] Hypertensive Heart Disease [ ] Hypertensive Kidney Disease [ ] Other diagnosis [ ] Unable to determine In addition, please specify: Present on Admission (POA): [ ] Yes [ ] No [ x] Unable to determine For continuity of documentation, please document condition throughout progress notes and discharge summary. Thank You. CLINICAL INDICATORS - SIGNS / SYMPTOMS / LABS / RESULTS AND LOCATION IN EMR 05/23 CXR: bilateral small pleural effusions 05/23 Echo: EF 50-55%; Grade 1/3 diastolic dysfunction Lab 05/22 BNP 295.8 05/23 (Maritza): "acute on chronic systolic vs diastolic heart failure" RISKS FACTORS / RESULTS AND LOCATION IN EMR History of "HTN, CAD s/p CABG 2008" H&P(Wal[facility]) TREATMENTS / RESULTS AND LOCATION IN EMR Cardiac monitoring / telemetry-ICU 05/23 orders ECHO 05/23 orders IV Diuretics--> 05/22 lasix 40mg iv x1; 05/22-05/23 Lasix 20mg IV BID; 05/24 lasix 40mg IV daily per orders 05/22 strict I/O and daily wts orders Oxygen 05/23 2L NC per orders Cardiology Consult 05/23 orders (This form is maintained as a part of the permanent medical record) 2014 [employer]. All Rights Reserved Ivonne Jara RN, BSN, CCDS [email or web address]
--- NOTE | 2019-05-24 13:26 | PQF ---
REENA FRANKLIN CAITLIN MD [id number] CLINICAL DOCUMENTATION IMPROVEMENT CLARIFICATION FORM: ICD-10 Updated PLEASE DO AN ADDENDUM TO THE PROGRESS NOTE WITH ANY DOCUMENTATION UPDATES OR ADDITIONS AND CARRY THROUGH TO DC SUMMARY. THANK YOU. DATE: 05/24/19 ATTN: Dr. Scanlon Please exercise your independent, professional judgment in responding to the clarification form. Clinical indicators are provided on the bottom of this form for your review Please check appropriate box(s): [ x ] Encephalopathy: Type: [ x ] Acute [ ] Subacute [ ] Chronic Etiology: [ ] Metabolic [ x ] Hypotension [ ] Toxic due to meds: ____ [ ] Unspecified [x ] in the setting of underlying dementia [ ] Other (please specify) [ ] Transient Alteration of Awareness [ ] Other diagnosis [ ] Unable to determine In addition, please specify: Present on Admission (POA): [x ] Yes [ ] No [ ] Unable to determine For continuity of documentation, please document condition throughout progress notes and discharge summary. Thank You. CLINICAL INDICATORS - SIGNS / SYMPTOMS / LABS / RESULTS AND LOCATION IN EMR 05/22 H&P: Vish: "will hold home meds as pt has some complaints of confusion and could be causing some decreased breathing leading to increased fluid overload" 05/23 Jose M: "A&Ox2, slow to respond, confused" H&P 05/22 (Vish): "UTI with 1+ fungus " RISK FACTORS / RESULTS AND LOCATION IN EMR Infectious process--> H&P(Vish):" fungal UTI" 05/22 H&P(Vish): "home meds: Elavil and klonopin" 05/23 Jose M: "BP 70s/40s prior"; "hypotensive episode" TREATMENTS / RESULTS AND LOCATION IN EMR 05/23 transfer to ICU per orders IV antibiotics--> 05/22 Rocephin IV in ED; diflucan 200 mg po BID per orders IV fluids--> NS 500 ml bolus 05/23 per orders (This form is maintained as a part of the permanent medical record) 2014 [employer]. All Rights Reserved Ivonne Jara, RN, BSN, CCDS [email or web address]
--- NOTE | 2019-05-24 15:42 | PDOC.PALCO ---
Palliative Care Consult - Consult Details Requesting Physician: Dr Scanlno Reason for Consult: goals of care, assistance with communication prognosis/ disease Family Members Present: None - Pertinent HPI 88 year old male who was recently at [facility] for management of Pancreatitis, improved and discharged to rehab for further management. At rehab patient had an onset of chest pain paired with anxiety. No relieving factors, transported to [facility] for evaluation. Admitted for further medical management to telemetry. During hospital stay a enoc velazquez was called and patient transported to CCU for higher level of care. - Pertinent PMH CAD w CABF 2009, HDL, HTN, anxiety with panic attacks, chronic pain, pancreatitis, CHF - Social History Smoking Status: Unknown if ever smoked Smoking: no tobacco exposure Alcohol Use: in recovery Drug Use History: none Living Situation: - Medications MAR Reviewed: Yes - Allergies Allergies/Adverse Reactions: Allergies Allergy/AdvReac Type Severity Reaction Status Date / Time codeine Allergy Verified 05/22/19 06:11 - Subjective Sleeping, confused. Denies pain, states "That man is resting comfortably". Unable to obtain a ROS secondary to confusion. - Objective Vital Signs: Vital Signs - Most Recent Temp Pulse Resp BP Pulse Ox 97.8 F 62 18 126/55 L 99 05/24/19 11:00 05/24/19 14:04 05/23/19 07:45 05/24/19 14:04 05/24/19 08:00 Palliative Performance Scale: 30 - Physical Exam Constitutional: confusion HEENT: PERRLA, moist MMs, sclera anicteric Deviation from normal: Venecia oribital edema Respiratory: unlabored breathing Cardiovascular: RRR Gastrointestinal: soft, non-tender, no distention, positive bowel sounds Musculoskeletal: pulses present Deviation from normal: scant lower extremity edema, non pitting Deviation from normal: Confused Skin: cap refill <2 seconds Deviation from normal: Fragile skin, brusing various stages - Problem List (1) Palliative care encounter Code(s): Z51.5 - ENCOUNTER FOR PALLIATIVE CARE Current Visit: Yes Status: Acute (2) Physical deconditioning Code(s): R53.81 - OTHER MALAISE Current Visit: Yes Status: Acute (3) Acute exacerbation of CHF (congestive heart failure) Code(s): I50.9 - HEART FAILURE, UNSPECIFIED Current Visit: Yes Status: Acute - Plan/Recommendations Plan: Initial contact with Patient. No family at bedside. *P Jairon carpenter general to contact family and arrange a family meeting to discuss goals of care and resuscitation status. [40] minutes spent on this encounter with >50% of the time in counseling and coordination of care. Thank you for this very appropriate consult.
[2019-05-24] MEDS ORDERED: Potassium Phosphate 30 MMOL in Sodium Chloride 0.9% 500 ML IVPB SCH (16:15)
--- NOTE | 2019-05-24 16:54 | PRG ---
DATE OF SERVICE: 05/24/2019 SERVICE: Pulmonary Medicine. INTERVAL HISTORY: The patient is doing fine from respiratory standpoint. He is on room air. Denies any current chest discomfort, nausea, or vomiting. He had not had any chest discomfort or shortness of breath overnight. Otherwise, he is returning to his usual state of health. PHYSICAL EXAMINATION: VITAL SIGNS: Afebrile, pulse 67, blood pressure 112/61, respirations 10, and saturation 98% on room air. GENERAL: The patient is awake and alert, in no apparent distress. LUNGS: Very good air entry. Dependent crackles are minimal. No prolonged expiratory phase or wheezing is appreciated today. HEART: Normal rate and regular. ABDOMEN: Soft, nontender, and nondistended. Bowel sounds are positive. MUSCULOSKELETAL: No cyanosis or clubbing. No pitting in the bilateral lower extremities. NEUROLOGIC: Grossly nonfocal. LABORATORY DATA: WBC 10.2, hemoglobin 11.1, and platelets 235,000. His differential has returned to near normal. Basic metabolic profile and liver function studies are unremarkable. His creatinine is stable at 0.91. Troponin 0.137 was previously up trending. Phosphorus 2.0, potassium 3.5. Urinalysis is positive for white blood cells. Marisel albicans is presumptively grown in the urine. IMAGIN. Ultrasound of bilateral lower extremities demonstrates no evidence of DVT. 2. Echocardiogram demonstrates 50% to 55% ejection fraction and 1/3 diastology. The septum has a delayed activation consistent with bundle branch morphology or paced. No significant valvular abnormalities are demonstrated. ASSESSMENT: 1. Acute hypoxic respiratory failure, resolved. 2. Xnc-PF-vsjwlzrmg myocardial infarction secondary to demand. 3. Acute on chronic diastolic heart failure. 4. Acute pancreatitis, resolved. 5. Urinary tract infection? DISCUSSION AND PLAN: Potassium and phosphorus will be replaced today. From a purely respiratory standpoint, he is more than stable for transition out of the ICU to the telemetry unit. Pulmonary/Critical Care will continue to follow in this location but when he lands on the floor, he will have no further requirements for my opinion, and I will sign off. Please call with additional questions or concerns through time. Job ID: [id number] MTDD
--- NOTE | 2019-05-24 16:58 | EKG ---
Test Reason : CODE GREEN Blood Pressure : / mmHG Vent. Rate : 070 BPM Atrial Rate : 070 BPM P-R Int : 192 ms QRS Dur : 196 ms QT Int : 572 ms P-R-T Axes : 000 -74 099 degrees QTc Int : 617 ms AV sequential or dual chamber electronic pacemaker When compared with ECG of 22-MAY-2019 02:17, (Unconfirmed) Vent. rate has increased BY [address] Catarino LOWE ([id number]) on 05/24/2019 4:57:55 PM Referred By: LINDA Confirmed By:DR. Catarino LOWE
--- NOTE | 2019-05-24 19:06 | PDOC.CPN ---
- Subjective Date: 05/24/19 Time: 19:09 Interval history: The pt seen and examined. No overnight events. No cardiac complaints. He is tele pt now. - Objective Allergies/Adverse Reactions: Allergies Allergy/AdvReac Type Severity Reaction Status Date / Time codeine Allergy Verified 05/22/19 06:11 Visit Medications: Current Medications Hydrocodone Bitart/Acetaminophen ([place] 10/325) 1 tab PO Q4H PRN PRN Reason: Pain Last Admin: 05/24/19 11:50 Dose: 1 tab Amitriptyline HCl (Elavil) 150 mg PO HS [facility] Last Admin: 05/23/19 21:34 Dose: 150 mg Aspirin (Ecotrin) 81 mg PO DAILY [facility] Last Admin: 05/24/19 08:48 Dose: 81 mg Atorvastatin Calcium (Lipitor) 40 mg PO DAILY [facility] Last Admin: 05/24/19 08:49 Dose: 40 mg Calcium Carbonate (Tums) 1,000 mg PO Q4H PRN PRN Reason: Heartburn or Indigestion Diphenhydramine HCl (Benadryl) 50 mg PO Q8H PRN PRN Reason: Agitation Last Admin: 05/22/19 20:16 Dose: 50 mg Famotidine (Pepcid) 20 mg PO BID [facility] Last Admin: 05/24/19 08:52 Dose: 20 mg Fluconazole (Diflucan) 200 mg PO DAILY [facility] Stop: 06/05/19 09:01 Last Admin: 05/24/19 08:47 Dose: 200 mg Furosemide (Lasix) 40 mg SLOW IVP DAILY [facility] Last Admin: 05/24/19 08:54 Dose: 40 mg Potassium Phosphate 30 mmol/ (Sodium Chloride) 510 mls @ 83.3 mls/hr IVPB NOW [facility] Stop: 05/24/19 22:23 Last Admin: 05/24/19 17:03 Dose: 510 mls Ondansetron HCl (Zofran Odt) 4 mg PO Q6H PRN PRN Reason: Nausea/Vomiting Ondansetron HCl (Zofran) 4 mg IVP Q6H PRN PRN Reason: Nausea/Vomiting Polyethylene Glycol (Miralax) 17 gm PO DAILY [facility] Last Admin: 05/24/19 08:54 Dose: 17 gm Potassium Chloride (Klor-Con) 20 meq PO QA-[facility] Last Admin: 05/24/19 08:54 Dose: 20 meq Rivaroxaban (Xarelto) 2.5 mg PO BID [facility] Last Admin: 05/24/19 08:50 Dose: 2.5 mg Sodium Chloride (Flush - Normal Saline) 10 ml IVF PRN PRN PRN Reason: Saline Flush Last Admin: 05/23/19 05:20 Dose: 10 ml Tamsulosin HCl (Flomax) 0.4 mg PO DAILY [facility] Last Admin: 05/24/19 08:55 Dose: 0.4 mg Vital Signs & Weight: Vital Signs Temp Pulse Pulse BP BP Pulse Ox 05/24/19 15:00 98.2 F 05/24/19 14:04 62 65 126/55 L 143/57 H 05/24/19 13:32 84 100/68 127/63 05/24/19 11:00 97.8 F 05/24/19 09:00 97.9 F 05/24/19 08:00 99 Admit Weight 173 lb Weight 175 lb 14.862 oz - Physical Exam General: alert & oriented x3 HEENT: mucus membranes moist Neck: supple neck Cardiac: regular rate and rhythm, S1/S2 Lungs: clear to auscultation, decreased breath sounds Neuro: cranial nerve 2-12 intact Abdomen: unremarkable Extremities: no cyanosis Skin: clear Musculoskeletal: decreased range of motion - Labs Result Diagrams: 05/24/19 05:15 05/24/19 05:15 Troponin/CKMB CK-MB (CK-2) 1.5 ng/mL (0-6.6) 05/22/19 02:34 Troponin I 0.137 ng/mL (< 0.028) H 05/23/19 12:07 - Telemetry Sinus rhythms and dysrhythmias: other (V paced) - Assessment/Plan Assessment/Plan: 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 to monitor 2. CAD with hx of CABG in 2008 - on ASA and Statin; may resume Coreg with more stable VS 3. HTN - stable without any BP med 4. HLD - on Lipitor 5. Anxiety/Depression - 6. Acute Pancreatitis - stable 7. 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 PM placement MAR reviewed * Echo on 05/23/2019 with EF 50-55%, grade I dd, mod dilated LA, mild MR, AR, , and TR
[2019-05-24] MEDS ORDERED: Carvedilol 25 MG TAB PO SCH (21:30)
[2019-05-25] MEDS: HYDROcodone/Acetaminophen 10/325 mg Tablet PO PRN (01:27)
[2019-05-25] MEDS: diphenhydrAMINE 50 MG CAP PO PRN ×2 (02:25→20:56)
[2019-05-25 04:12] LABS: ALT (SGPT) 22 U/L (8-55); AST (SGOT) 31 U/L (5-34); Albumin 2.7 g/dL (3.4-4.8); Alkaline Phosphatase 56 U/L (40-110); Anion Gap 9 mmol/L (10-20); BUN (Urea Nitrogen) 16 mg/dL (8.4-25.7); Bilirubin, Total 0.5 mg/dL (0.2-1.2); Calc. Creatinine Clearance 64 mL/min (70-130); Calcium 8.2 mg/dL (7.8-10.44); Carbon Dioxide 31 mmol/L (23-31); Chloride 101 mmol/L (98-107); Estimated GFR-MDRD 77; Globulin 2.3 g/dL (2.4-3.5); Glucose 98 mg/dL (83-110); Magnesium 2.1 mg/dL (1.6-2.6); Potassium 3.8 mmol/L (3.5-5.1); Sodium 137 mmol/L (136-145)
[2019-05-25 04:20] LABS: Phosphorus 3.9 mg/dL (2.3-4.7)
[2019-05-25 04:34] LABS: Band 2 % (5-11); Eosinophils 9 % (0-10); Hemoglobin 10.3 g/dL (14.0-18.0); Lymphocytes 8 % (21-51); MDiff Complete? YES; Mean Corpuscular Hemoglobin 31.3 pg (27.0-31.0); Mean Corpuscular Volume 94.8 fL (78.0-98.0); Mean Platelet Volume 8.8 fL (7.4-10.4); Monocytes 5 % (0-10); Neutrophil 76 % (42-75); Platelet Count 210 thou/uL (130-400); RBC Distribution Width 12.1 % (11.5-14.5); Red Blood Cell (RBC) Count 3.28 mill/uL (4.70-6.10); White Blood Cell (WBC) Count 10.4 thou/uL (4.8-10.8)
--- NOTE | 2019-05-25 05:42 | PDOC.FM ---
- Subjective Subjective: Pt has no complaints this morning. He states his breathing is improved. - Objective MAR Reviewed: Yes Vital Signs & Weight: Vital Signs (12 hours) Temp Pulse Ox 05/25/19 04:00 97.9 F 05/25/19 00:00 98.0 F 05/24/19 20:00 100 05/24/19 19:00 97.9 F Weight Admit Weight 78.471 kg Weight 79.8 kg Most Recent Monitor Data Heart Rate from ECG 64 NIBP 131/60 NIBP BP-Mean 83 Respiration from ECG 12 SpO2 100 I&O: 05/23/19 05/24/19 05/25/19 06:59 06:59 06:59 Intake Total 240 3240 1590 Output Total 162 436 5693 Balance -210 2490 -984 Result Diagrams: 05/26/19 04:39 05/26/19 04:39 Phys Exam - Physical Examination Constitutional: NAD HEENT: moist MMs Neck: no JVD Respiratory: no wheezing Mild crackles at bases Cardiovascular: RRR 2/6 systolic murmur Gastrointestinal: soft, non-tender, no distention, positive bowel sounds Musculoskeletal: no edema, pulses present Neurological: moves all 4 limbs Skin: cap refill <2 seconds Dx/Plan (1) Acute exacerbation of CHF (congestive heart failure) Code(s): I50.9 - HEART FAILURE, UNSPECIFIED Status: Acute (2) NSTEMI (non-ST elevated myocardial infarction) Code(s): I21.4 - NON-ST ELEVATION (NSTEMI) MYOCARDIAL INFARCTION Status: Acute (3) Physical deconditioning Code(s): R53.81 - OTHER [place]AISE Status: Acute (4) Anxiety Code(s): F41.9 - ANXIETY DISORDER, UNSPECIFIED Status: Chronic (5) CAD (coronary artery disease) Code(s): I25.10 - ATHSCL HEART DISEASE OF [place] CORONARY ARTERY W/O ANG PCTRS Status: Chronic Qualifiers: Coronary Disease-Associated Artery/Lesion type: bypass graft, autologous vein - Plan Plan: This is an 88 yo male with a pmh of HTN, HLD, CAD, PTSD Acute on chronic HFpEF exacerbation -Continued respiratory support -Pt has a positive fluid balance of 1.3L for this hospitalizatin -Continue IV lasix -Echo from this stay shows EF 50-55% and 1/3 diastolic dysfunction Acute metabolic encephalopathy 2/2 above, resolved -Much improved mentation Marisel UTI -PO diflucan 05/22, continue for 14 days total Chronic anemia -Appears at or above baseline, will monitor Deconditioning -Rehab screen and PT/OT PTSD/Anxiety -Continue home elavil and klonipin Acute hypoxic respiratory failure, resolved Addendum - Attending - Attending Attestation Date/Time: 05/26/19 8030 I personally evaluated the patient and discussed the management with Dr. Moses on 05/25. I agree with the History, Examination, Assessment and Plan documented above with any addition or exceptions noted below.
[2019-05-25] MEDS: Carvedilol 25 MG TAB PO SCH ×2 (10:08→17:52)
[2019-05-25] MEDS: Famotidine 20 MG TAB PO SCH ×2 (10:09→20:57)
[2019-05-25] MEDS: Aspirin 81 mg Enteric Coated Tablet PO SCH (10:09)
[2019-05-25] MEDS: Atorvastatin Calcium 40 MG TAB PO SCH (10:09)
[2019-05-25] MEDS: Fluconazole 100 MG TAB PO SCH (10:09)
[2019-05-25] MEDS: Tamsulosin HCl 0.4 MG CAP PO SCH (10:10)
[2019-05-25] MEDS: Rivaroxaban 2.5 MG TAB PO SCH ×2 (10:10→20:57)
[2019-05-25] MEDS: Polyethylene Glycol 3350 17 GM Packet PO SCH (10:10)
[2019-05-25] MEDS: Furosemide 40 MG/4 ML VIAL SLOW IVP SCH (10:10)
[2019-05-26] MEDS: HYDROcodone/Acetaminophen 10/325 mg Tablet PO PRN ×2 (03:56→21:12)
[2019-05-26 05:25] LABS: ALT (SGPT) 25 U/L (8-55); AST (SGOT) 37 U/L (5-34); Albumin 3.2 g/dL (3.4-4.8); Alkaline Phosphatase 72 U/L (40-110); Anion Gap 12 mmol/L (10-20); BUN (Urea Nitrogen) 14 mg/dL (8.4-25.7); Bilirubin, Total 0.6 mg/dL (0.2-1.2); Calc. Creatinine Clearance 63 mL/min (70-130); Calcium 8.7 mg/dL (7.8-10.44); Carbon Dioxide 28 mmol/L (23-31); Chloride 101 mmol/L (98-107); Estimated GFR-MDRD 76; Globulin 2.7 g/dL (2.4-3.5); Glucose 109 mg/dL (83-110); Magnesium 2.1 mg/dL (1.6-2.6); Potassium 3.7 mmol/L (3.5-5.1); Protein, Total 5.9 g/dL (5.8-8.1); Sodium 137 mmol/L (136-145)
[2019-05-26 05:29] LABS: Phosphorus 2.9 mg/dL (2.3-4.7)
[2019-05-26 06:00] LABS: Band 11 % (5-11); Eosinophils 1 % (0-10); Hemoglobin 12.1 g/dL (14.0-18.0); Lymphocytes 6 % (21-51); MDiff Complete? YES; Mean Corpuscular HGB CONC 32.6 g/dL (32.0-36.0); Mean Corpuscular Hemoglobin 31.2 pg (27.0-31.0); Mean Corpuscular Volume 95.6 fL (78.0-98.0); Mean Platelet Volume 9.3 fL (7.4-10.4); Monocytes 8 % (0-10); Neutrophil 74 % (42-75); Platelet Count 247 thou/uL (130-400); RBC Distribution Width 12.3 % (11.5-14.5); Red Blood Cell (RBC) Count 3.88 mill/uL (4.70-6.10); White Blood Cell (WBC) Count 10.4 thou/uL (4.8-10.8)
--- NOTE | 2019-05-26 06:48 | PDOC.FM ---
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 Talking about things that have not happened per the sitter. Per nursing, he was confused overnight and pulling at his IV, sky, and tele leads. He denies any complaints this morning. - Objective MAR Reviewed: Yes Vital Signs & Weight: Vital Signs (12 hours) Temp Pulse Resp BP Pulse Ox 05/26/19 03:44 97.7 F 73 18 161/73 H 98 05/25/19 20:00 100 05/25/19 19:43 98.1 F 60 18 131/57 L 100 Weight Admit Weight 78.471 kg Weight 78.653 kg Most Recent Monitor Data Heart Rate from ECG 74 NIBP 154/80 NIBP BP-Mean 104 Respiration from ECG 19 SpO2 100 I&O: 05/24/19 05/25/19 05/26/19 06:59 06:59 06:59 Intake Total 3240 1590 1260 Output Total 750 2634 2151 Balance 2490 -1044 -891 Result Diagrams: 05/26/19 04:39 05/26/19 04:39 Phys Exam - Physical Examination Constitutional: NAD HEENT: moist MMs Neck: no JVD Respiratory: no wheezing, no rales, no rhonchi Cardiovascular: RRR 2/6 systolic dysfunction Gastrointestinal: soft, non-tender, no distention, positive bowel sounds Musculoskeletal: no edema, pulses present Neurological: moves all 4 limbs Psychiatric: A&O x 3 Skin: cap refill <2 seconds Dx/Plan (1) Acute exacerbation of CHF (congestive heart failure) Code(s): I50.9 - HEART FAILURE, UNSPECIFIED Status: Acute (2) NSTEMI (non-ST elevated myocardial infarction) Code(s): I21.4 - NON-ST ELEVATION (NSTEMI) MYOCARDIAL INFARCTION Status: Acute (3) Physical deconditioning Code(s): R53.81 - OTHER [place] Status: Acute (4) Anxiety Code(s): F41.9 - ANXIETY DISORDER, UNSPECIFIED Status: Chronic (5) CAD (coronary artery disease) Code(s): I25.10 - ATHSCL HEART DISEASE OF [place] CORONARY ARTERY W/O ANG PCTRS Status: Chronic Qualifiers: Coronary Disease-Associated Artery/Lesion type: bypass graft, autologous vein - Plan Plan: This is an 88 yo male with a pmh of HTN, HLD, CAD, PTSD Acute on chronic HFpEF exacerbation -Continued respiratory support -Pt has a positive fluid balance of 0..L for this hospitalizatin -Continue IV lasix -Echo from this stay shows EF 50-55% and 1/3 diastolic dysfunction Acute metabolic encephalopathy 2/2 above, resolved -Much improved mentation -Some confusion overnight Marisel UTI -PO diflucan 05/22, continue for 14 days total Chronic anemia -Appears at or above baseline, will monitor Deconditioning -Rehab screen and PT/OT -Likely discharged today Urinary retention -Currently has sky, will try voiding trial prior to DC but will likely need outpt urology consult PTSD/Anxiety -Continue home elavil and klonipin Acute hypoxic respiratory failure, resolved Addendum - Attending - Attending Attestation Date/Time: 05/26/19 7666 I personally evaluated the patient and discussed the management with Dr. Moses. I agree with the History, Examination, Assessment and Plan documented above with any addition or exceptions noted below. Overall doing well, mild delirium last night with no obvious etiology. Likely to rehab today.
[2019-05-26] MEDS: Carvedilol 25 MG TAB PO SCH ×2 (08:44→17:04)
[2019-05-26] MEDS: Aspirin 81 mg Enteric Coated Tablet PO SCH (08:45)
[2019-05-26] MEDS: Polyethylene Glycol 3350 17 GM Packet PO SCH (08:45)
[2019-05-26] MEDS: Atorvastatin Calcium 40 MG TAB PO SCH (08:45)
[2019-05-26] MEDS: Furosemide 20 MG TAB PO SCH ×2 (08:45→21:07)
[2019-05-26] MEDS: Fluconazole 100 MG TAB PO SCH (08:45)
[2019-05-26] MEDS: Famotidine 20 MG TAB PO SCH ×2 (08:45→21:06)
[2019-05-26] MEDS: Tamsulosin HCl 0.4 MG CAP PO SCH (08:46)
[2019-05-26] MEDS: Rivaroxaban 2.5 MG TAB PO SCH ×2 (09:00→21:06)
--- NOTE | 2019-05-26 11:13 | PDOC.CPN ---
- Subjective Date: 05/26/19 Time: 08:30 Interval history: The pt seen and examined. No overnight events. No cardiac complaints. - Objective Allergies/Adverse Reactions: Allergies Allergy/AdvReac Type Severity Reaction Status Date / Time codeine Allergy Verified 05/22/19 06:11 Visit Medications: Current Medications Hydrocodone Bitart/Acetaminophen ([place] 10/325) 1 tab PO Q4H PRN PRN Reason: Pain Last Admin: 05/26/19 03:56 Dose: 1 tab Amitriptyline HCl (Elavil) 150 mg PO HS [facility] Last Admin: 05/25/19 20:57 Dose: 150 mg Aspirin (Ecotrin) 81 mg PO DAILY [facility] Last Admin: 05/26/19 08:45 Dose: 81 mg Atorvastatin Calcium (Lipitor) 40 mg PO DAILY [facility] Last Admin: 05/26/19 08:45 Dose: 40 mg Calcium Carbonate (Tums) 1,000 mg PO Q4H PRN PRN Reason: Heartburn or Indigestion Carvedilol (Coreg) 12.5 mg PO BID-[facility] Last Admin: 05/26/19 08:44 Dose: 12.5 mg Diphenhydramine HCl (Benadryl) 50 mg PO Q8H PRN PRN Reason: Agitation Last Admin: 05/25/19 20:56 Dose: 50 mg Famotidine (Pepcid) 20 mg PO BID [facility] Last Admin: 05/26/19 08:45 Dose: 20 mg Fluconazole (Diflucan) 200 mg PO DAILY [facility] Stop: 06/05/19 09:01 Last Admin: 05/26/19 08:45 Dose: 200 mg Furosemide (Lasix) 20 mg PO BID [facility] Last Admin: 05/26/19 08:45 Dose: 20 mg Ondansetron HCl (Zofran Odt) 4 mg PO Q6H PRN PRN Reason: Nausea/Vomiting Ondansetron HCl (Zofran) 4 mg IVP Q6H PRN PRN Reason: Nausea/Vomiting Polyethylene Glycol (Miralax) 17 gm PO DAILY [facility] Last Admin: 05/26/19 08:45 Dose: 17 gm Potassium Chloride (Klor-Con) 20 meq PO QAM-[facility] Last Admin: 05/26/19 08:44 Dose: 20 meq Rivaroxaban (Xarelto) 2.5 mg PO BID [facility] Last Admin: 05/26/19 09:00 Dose: 2.5 mg Sodium Chloride (Flush - Normal Saline) 10 ml IVF PRN PRN PRN Reason: Saline Flush Last Admin: 05/26/19 08:46 Dose: 10 ml Tamsulosin HCl (Flomax) 0.4 mg PO DAILY [facility] Last Admin: 05/26/19 08:46 Dose: 0.4 mg Vital Signs & Weight: Vital Signs Temp Pulse Resp BP Pulse Ox 05/26/19 08:30 96 05/26/19 08:29 97.7 F 62 20 150/69 H 96 05/26/19 03:44 97.7 F 73 18 161/73 H 98 Admit Weight 173 lb Weight 173 lb 6.4 oz - Physical Exam General: other (mildly confused) Neck: supple neck Cardiac: regular rate and rhythm, S1/S2 Lungs: decreased breath sounds Skin: clear Musculoskeletal: decreased range of motion - Labs Result Diagrams: 05/27/19 04:42 05/27/19 04:42 Troponin/CKMB CK-MB (CK-2) 1.5 ng/mL (0-6.6) 05/22/19 02:34 Troponin I 0.137 ng/mL (< 0.028) H 05/23/19 12:07 - Telemetry Sinus rhythms and dysrhythmias: sinus rhythm - Assessment/Plan Assessment/Plan: 1. 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 CAD with hx of CABG in 2008 - on ASA and Statin; may resume Coreg with more stable VS 3. HTN - stable without any BP med 4. HLD - on Lipitor 5. Anxiety/Depression - 6. Acute Pancreatitis - stable 7. 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 PM placement MAR reviewed * Echo on 05/23/2019 with EF 50-55%, grade I dd, mod dilated LA, mild MR, AR, , and TR Pt. seen and eval. by me. I agree with the A/P by the AIR TABLE OPERATOR. [email or web address]
[2019-05-27 05:47] LABS: ALT (SGPT) 24 U/L (8-55); AST (SGOT) 38 U/L (5-34); Albumin 2.9 g/dL (3.4-4.8); Alkaline Phosphatase 71 U/L (40-110); Anion Gap 12 mmol/L (10-20); BUN (Urea Nitrogen) 12 mg/dL (8.4-25.7); Bilirubin, Total 0.5 mg/dL (0.2-1.2); Calc. Creatinine Clearance 69 mL/min (70-130); Calcium 8.5 mg/dL (7.8-10.44); Carbon Dioxide 26 mmol/L (23-31); Chloride 102 mmol/L (98-107); Estimated GFR-MDRD 85; Globulin 2.6 g/dL (2.4-3.5); Glucose 86 mg/dL (83-110); Magnesium 2.2 mg/dL (1.6-2.6); Potassium 3.9 mmol/L (3.5-5.1); Protein, Total 5.5 g/dL (5.8-8.1); Sodium 136 mmol/L (136-145)
[2019-05-27 06:01] LABS: Band 1 % (5-11); Eosinophils 3 % (0-10); Hemoglobin 11.3 g/dL (14.0-18.0); Lymphocytes 17 % (21-51); MDiff Complete? YES; Mean Corpuscular Hemoglobin 31.6 pg (27.0-31.0); Mean Corpuscular Volume 95.9 fL (78.0-98.0); Mean Platelet Volume 9.7 fL (7.4-10.4); Monocytes 13 % (0-10); Neutrophil 66 % (42-75); Platelet Count 190 thou/uL (130-400); RBC Distribution Width 12.3 % (11.5-14.5); Red Blood Cell (RBC) Count 3.57 mill/uL (4.70-6.10); White Blood Cell (WBC) Count 6.7 thou/uL (4.8-10.8)
--- NOTE | 2019-05-27 06:20 | PDOC.FM ---
- Subjective Subjective: Nursing reports he did well overnight. He has been urinating on his own without any issues. Pt denies any complaints this morning. - Objective MAR Reviewed: Yes Vital Signs & Weight: Vital Signs (12 hours) Temp Pulse Resp BP Pulse Ox 05/27/19 03:58 97.8 F 64 18 143/63 H 99 05/26/19 19:50 97.9 F 60 18 146/64 H 96 Weight Admit Weight 78.471 kg Weight 77.02 kg Most Recent Monitor Data Heart Rate from ECG 74 NIBP 154/80 NIBP BP-Mean 104 Respiration from ECG 19 SpO2 100 I&O: 05/25/19 05/26/19 05/27/19 06:59 06:59 06:59 Intake Total 1590 1260 960 Output Total 2634 2151 1050 Balance -1044 -891 -90 Result Diagrams: 05/27/19 04:42 05/27/19 04:42 Phys Exam - Physical Examination Constitutional: NAD (eating breakfast) HEENT: moist MMs Neck: no JVD Respiratory: no wheezing, clear to auscultation bilateral Cardiovascular: RRR 2/6 systolic murmur Gastrointestinal: soft, non-tender, no distention, positive bowel sounds Musculoskeletal: no edema, pulses present Neurological: moves all 4 limbs Skin: cap refill <2 seconds Dx/Plan (1) Acute exacerbation of CHF (congestive heart failure) Code(s): I50.9 - HEART FAILURE, UNSPECIFIED Status: Acute (2) NSTEMI (non-ST elevated myocardial infarction) Code(s): I21.4 - NON-ST ELEVATION (NSTEMI) MYOCARDIAL INFARCTION Status: Acute (3) Physical deconditioning Code(s): R53.81 - OTHER [place] Status: Acute (4) Anxiety Code(s): F41.9 - ANXIETY DISORDER, UNSPECIFIED Status: Chronic (5) CAD (coronary artery disease) Code(s): I25.10 - ATHSCL HEART DISEASE OF [place] CORONARY ARTERY W/O ANG PCTRS Status: Chronic Qualifiers: Coronary Disease-Associated Artery/Lesion type: bypass graft, autologous vein - Plan Plan: This is an 88 yo male with a pmh of HTN, HLD, CAD, PTSD Acute on chronic HFpEF exacerbation -Continued respiratory support -Pt has a positive fluid balance of 255 mL for this hospitalizatin -Continue IV lasix -Echo from this stay shows EF 50-55% and 1/3 diastolic dysfunction Acute metabolic encephalopathy 2/2 above, resolved -Much improved mentation [place]own[place] -Some confusion overnight Marisel UTI -PO diflucan 05/22, continue for 14 days total Chronic anemia -Appears at or above baseline, will monitor Deconditioning -Rehab screen and PT/OT -Likely discharged today Urinary retention -Currently has sky, will try voiding trial prior to DC but will likely need outpt urology consult -Has some retention, will recheck today to see if there is any improvement PTSD/Anxiety -Continue home elavil and klonipin Acute hypoxic respiratory failure, resolved Addendum - Attending - Attending Attestation Date/Time: 05/27/19 1127 I personally evaluated the patient and discussed the management with Dr. Moses. I agree with the History, Examination, Assessment and Plan documented above with any addition or exceptions noted below.
[2019-05-27 07:00] LABS: Phosphorus 3.1 mg/dL (2.3-4.7)
[2019-05-27] MEDS: Polyethylene Glycol 3350 17 GM Packet PO SCH (09:45)
[2019-05-27] MEDS: Fluconazole 100 MG TAB PO SCH (09:45)
[2019-05-27] MEDS: Rivaroxaban 2.5 MG TAB PO SCH (09:46)
[2019-05-27] MEDS: Tamsulosin HCl 0.4 MG CAP PO SCH (09:46)
[2019-05-27] MEDS: Carvedilol 25 MG TAB PO SCH (09:46)
[2019-05-27] MEDS: Atorvastatin Calcium 40 MG TAB PO SCH (09:46)
[2019-05-27] MEDS: Furosemide 20 MG TAB PO SCH (09:46)
[2019-05-27] MEDS: Aspirin 81 mg Enteric Coated Tablet PO SCH (09:46)
[2019-05-27] MEDS: Famotidine 20 MG TAB PO SCH (09:46)
[2019-05-27 11:56] VITALS: BP 141/66; TEMP 97.7
--- NOTE | 2019-05-28 09:59 | DIS ---
DATE OF ADMISSION: 05/22/2019 DATE OF DISCHARGE: 05/27/2019 ADMITTING ATTENDING: Miya Tipton MD DISCHARGE ATTENDING: Johny Ardon MD. RESIDENT: Jonathan Moses DO CONSULTS: 1. Dr. Kirt Salas, Cardiology. 2. Dr. Prateek Negrete. PROCEDURES: 1. Echocardiogram done on 05/23, shows ejection fraction visualized estimated 50 % to 55%. Grade 3 diastolic dysfunction. Delayed septal activation consistent with BBB/paced morphology. Pacer wire was visualized in right ventricle, moderately dilated left atrium. 2. One-view chest x-ray on 05/23/2019, showing known bilateral small pleural effusions demonstrated on recent CT not visualized on this single view chest x- ray, no acute cardiopulmonary findings on single view x-ray. 3. Venous Doppler bilaterally shows no evidence for deep vein thrombosis. PRIMARY DIAGNOSES: Heart failure with preserved ejection fraction and acute exacerbation, atypical chest pain, fungal urinary tract infection, deconditioning, elevated D-dimer. SECONDARY DIAGNOSES: Anxiety/posttraumatic stress disorder, chronic back pain, hyperlipidemia, hypertension. DISCHARGE MEDICATIONS: 1. Tylenol 325 mg p.o. 1 to 2 tablets p.o. q.4 hours p.r.n. pain. 2. Aspirin 325 mg p.o. b.i.d. 3. Atorvastatin 40 mg p.o. at bedtime. 4. Benzocaine lozenge one lozenge p.o. q.2 hours. 5. Dulcolax 10 mg suppository daily. 6. Calcium carbonate 500 mg tablets, 1 to 2 tablets p.o. q.6 hours p.r.n. GERD. 7. Carvedilol 12.5 mg p.o. b.i.d. 8. Clonidine 0.1 mg p.o. q.6 hours p.r.n. hypertension. 9. D50 of 50 mL IV p.r.n. hypoglycemia. 10. Benadryl 25 mg p.o. q.6 hours p.r.n. itching. 11. Famotidine 20 mg p.o. b.i.d. 12. Fentanyl patch 75 mcg p.o. t.i.d. 13. Fluconazole 200 mg p.o. daily for 8 days. 14. Furosemide 20 mg p.o. b.i.d. 15. Glucagon 1 mg IM p.r.n. hypoglycemia. 16. Guaifenesin 200 mg p.o. q.4 hours. 17. [place] 10/325 one tablet q.4 hours p.r.n. pain. 18. Ipratropium one 3 mL treatment q.4 hours p.r.n. shortness of breath or wheezing. 19. Lactulose 20 g p.o. t.i.d. constipation. 20. Loperamide 2 mg capsule p.o. p.r.n. diarrhea, loose stools. 21. Magnesium hydroxide 30 mL p.o. daily p.r.n. constipation. 22. Magnesium oxide 800 mg p.o. daily. 23. Multivitamin p.o. daily. 24. MiraLAX 1 packet p.o. daily. 25. cough drop p.o. b.i.d. 26. Entresto p.o. b.i.d. 27. Tamsulosin 0.4 mg p.o. daily. DISCONTINUED MEDICATIONS: 1. Xarelto. This was found to be not a chronic medication. In the documentation, it shows that he was taking it for prior PE, but has been taken off it due to fall risk. 2. Doxycycline. 3. Levaquin. BRIEF HISTORY OF PRESENT ILLNESS/HOSPITAL COURSE: This is an 88-year-old male with past medical history as above, who presents with chest pain, was recently admitted to [facility] for pancreatitis, developed acute delirium, fluid overload, placed on BiPAP for small time, was improved and discharged prior to inpatient rehab. Prior to admission, the patient overnight began experiencing substernal chest pain, 5/ 10, no radiation. No diaphoresis, nausea, vomiting, or shortness of breath. The patient had some anxiety. The patient was admitted to the hospital and found to be in mild CHF exacerbation with a BNP of 295, his troponin was 0.1 lower than previous visits. The patient is found to have fungus in his urine and was started on Diflucan. The patient had D-dimer of 2.37, had a venogram of bilateral lower extremities as well as CTA, negative for DVT and PE respectively. On 05/23/2019, enoc velazquez was called at 0817 for symptomatic hypotension and dizziness, BP was 78/32. The patient was placed in reverse Trendelenburg. He received 1 L bolus. At that time, blood sugar stable. Blood pressure improved on fluids. Fentanyl patch was removed. Chest x-ray was performed at that point. Blood pressure remained low. Heart rate was in the 60s to 70s, paced. The patient was transferred to . The patient was in the ICU and recovered gradually, sent back to the floor. The last few days, the patient has continued diuresing, medications that assisted was p.o. Lasix. The patient had been waiting for inpatient rehab acceptance up to this point. DISPOSITION: Stable. DISCHARGE INSTRUCTIONS: 1. Location: [facility]. 2. Diet: Heart healthy, 2 g of sodium per day with 1500 mL fluid restriction. 3. Activity: As tolerated per PT. 4. Follow up with Dr. Dubon, PCP and nuclear reactor operator as instructed. Job ID: [id number] MTDD
--- NOTE | 2019-05-29 00:12 | PQF ---
REENA FRANKLIN BRANDON [id number] CLINICAL DOCUMENTATION CLARIFICATION FORM: POST DISCHARGE Addendum to original discharge summary date: ____ Late entry note date: __ DATE: 05/29/19 ATTN: Johny Ardon Please exercise your independent, professional judgment in responding to the clarification form. Clinical indicators are provided on the bottom of this form for your review Please check appropriate box(es): [ ] Sepsis due to Fungal UTI [ ] Severe sepsis with acute organ dysfunction of: (Examples: respiratory failure, encephalopathy, acute kidney failure, other) [ ] Septic Shock [ ] Localized infection without sepsis [ ] Other diagnosis [ x ] Unable to determine In addition, please specify: Present on Admission (POA): [ ] Yes [ ] No [ x ] Unable to determine For continuity of documentation, please document condition throughout progress notes and discharge summary. Thank You. CLINICAL INDICATORS - SIGNS / SYMPTOMS / LABS ER note p1 tras[facility]fer [facility] for c/p and hypotension ER note p2 Vital sign BP 90/43 Family med PN p4 WBC: 15.1 Family med PN p6 UTI with 1+ fungus and LE and WBC, sxs dysuria Microbiology 05/22 Urine culture Marisel Albicans RISK FACTORS ER note p8 UTI Family med PN p6 Fungal UTI Physician documentation p1 05/24 Acute Hypotensive Encephalopathy TREATMENTS: SEP 21 IV Ceftriaxone MAR Diflucan 200mg BID SEP 21 IV Vancomycin SEP 21 NS 500ml Bolus (This form is maintained as a part of the permanent medical record) 2014 [employer]. All Rights Reserved [email or web address] [not provided] MTDD
== END 2019-05-27 14:00 | DRG 280 ==
LOC: ERS 02:07 → 2NO 03:41 → CCU 05-23 08:39 → 2NO 05-25 07:36
PROVIDERS: ADMIT Family Medicine; ATTEND Family Medicine
DX: I11.0 Hypertensive heart disease with heart failure (principal); I21.A1 Myocardial infarction type 2; J96.01 Acute respiratory failure with hypoxia; K85.90 Acute pancreatitis without necrosis or infection, unspecified; G93.41 Metabolic encephalopathy; G93.49 Other encephalopathy; F05 Delirium due to known physiological condition; B37.49 Other urogenital candidiasis; I50.33 Acute on chronic diastolic (congestive) heart failure; F43.10 Post-traumatic stress disorder, unspecified; F41.9 Anxiety disorder, unspecified; G89.29 Other chronic pain; M54.9 Dorsalgia, unspecified; E78.5 Hyperlipidemia, unspecified; I25.10 Atherosclerotic heart disease of native coronary artery without angina pectoris; R79.89 Other specified abnormal findings of blood chemistry; F03.90 Unspecified dementia, unspecified severity, without behavioral disturbance, psychotic disturbance, mood disturbance, and anxiety; R33.9 Retention of urine, unspecified; Z88.5 Allergy status to narcotic agent; Z79.899 Other long term (current) drug therapy; Z79.82 Long term (current) use of aspirin; Z95.1 Presence of aortocoronary bypass graft; Z86.711 Personal history of pulmonary embolism
CPT/HCPCS: 36415; 36416; 71045; 71275; 80053; 81003; 81015; 82553; 83690; 83735; 83880; 84100; 84145; 84484; 85007; 85027; 85379; 87086; 93005; 93010; 93306; 93798; 93970; 96374; J0696; J1650; J1940; J3480; J7050; Q0163